=== PATIENT | female | born 1950 | race African-American/Black ===

== ENCOUNTER 2019-04-21 06:44 | Day surgery (SDC) | payer OTHER, BC ==
[2019-04-21] MEDS ORDERED: HEPARIN NA (PORCINE) 5,000 UNITS/ML 1ML VIAL ONE (07:32)
[2019-04-21] MEDS ORDERED: POVIDONE-IODINE OINTMENT 10% - 28.4 GM TUBE ONE (07:32)
[2019-04-21] MEDS ORDERED: LIDOCAINE HCL 1%, 10 MG/ML (20ML VIAL) ONE (07:32)
[2019-04-21 07:50] VITALS: BMI 45.5
[2019-04-21] MEDS ORDERED: MIDAZOLAM HCL 2 MG/2 ML SINGLE DOSE VIAL ONE ×2 (08:54→11:05)
[2019-04-21] MEDS ORDERED: PROPOFOL 20 ML ONE ×2 (08:54)
--- NOTE | 2019-04-21 08:55 | HP ---
Satellite [facility] - Chief Complaint History of Present Illness: 68 year old woman with ESRD on HD. Left arm fistula failed after multiple interventions. History Source: Medical Record Limitations to Obtaining History: No Limitations - Past Medical History Allergies/Adverse Reactions: Allergies Allergy/AdvReac Type Severity Reaction Status Date / Time wheat Allergy Intermediate Rash Verified 04/21/19 07:12 Iodinated Contrast- Oral and Allergy Mild Rash, ITCHY Verified 04/21/19 07:12 IV Dye latex Allergy Mild Rash,ITCHY Verified 04/21/19 07:12 oxycodone HCl [From Percocet] Allergy Mild Nausea Verified 04/21/19 07:12 Sulfa (Sulfonamide Allergy Mild Rash,ITCHY Verified 04/21/19 07:12 Antibiotics) steroids AdvReac Unknown Nausea Uncoded 04/21/19 07:12 CARDIOTHORACIC ANESTHESIA TECHNICIAN: Yes: CVA Cardiovascular: Yes: CAD, HTN, Hyperlipdemia Pulmonary: Yes: Asthma, Sleep Apnea Gastrointestinal: Yes: Constipation Renal/: Yes: Renal Inusuff (baseline creatinine 1.5-1.[address] Dat Fenton) Infectious Disease: Yes: Other (see HPI) Musculoskeletal: Yes: Chronic low back pain Endocrine: Yes: Diabetes Mellitus - Current Medications Current Medications: Home Medications Medication Instructions Recorded Insulin (Novolog) [Novolog Flexpen 0 units SQ TIDAC #0 pen 02/18/14 -] Insulin Glargine,Hum.rec.anlog 27 units SQ DAILY 12/28/14 [Lantus (10mL VIAL) -] Torsemide 20 mg PO DAILY 12/28/14 Albuterol 0.083% Nebulizer Kitty 1 neb NEB QID 07/06/16 [Ventolin 0.083%] Aspirin [Ecotrin] 81 mg PO DAILY 07/06/16 Atorvastatin Ca [Lipitor] 40 mg PO HS 07/06/16 Fluticasone/Salmeterol [Advair 1 each IH DAILY 07/06/16 250-50 Diskus] Amlodipine Besylate 10 mg PO DAILY 04/21/19 Doxazosin Mesylate 2 mg PO DAILY 04/21/19 Montelukast Na [Singulair -] 10 mg PO HS 04/21/19 Satellite Physical Exam - Physical Examination Vital Signs: Vital Signs Period Temp Pulse Resp BP Sys/Gallo Pulse Ox Last 24 Hr 98.2 F 50 16 158/66 96 General Appearance: Obese ENT: Clear Lung: Clear to auscultation Heart: Regular rate & rhythm Abdomen: Soft Extremities: No edema Neurological: Intact Satellite Impression/Plan - Impression/Plan Impression: ESRD on HD Operative Procedure: Placement AV graft left arm Date to be Performed: 04/21/19
[2019-04-21] MEDS ORDERED: KETAMINE HCL 200 MG/20 ML VIAL ONE (09:12)
[2019-04-21] MEDS ORDERED: ONDANSETRON 4 MG/2 ML VIAL IVPUSH PRN (09:15)
[2019-04-21] MEDS ORDERED: ceFAZolin SODIUM 1 GM VIAL IVPB ONE (09:18)
[2019-04-21] MEDS ORDERED: LIDOCAINE HCL 1%, 10 MG/ML (20ML VIAL) NR ONE ×2 (09:30)
[2019-04-21] MEDS ORDERED: THROMBIN (BOVINE) 5,000 UNIT VIAL TP ONE ×2 (10:21→10:26)
[2019-04-21] MEDS ORDERED: POVIDONE-IODINE OINTMENT 10% - 28.4 GM TUBE TP ONE (11:28)
--- NOTE | 2019-04-21 11:46 | OP ---
Operative Note - Note: Operative Date: 04/21/19 Pre-Operative Diagnosis: ESRD on HD Operation: Placement AV graft left arm Findings: Patent axillary artery and vein Implants: 4-7 mm PTFE graft Post-Operative Diagnosis: Same as Pre-op Surgeon: Akira Chatman Chiropractic Care: Jimbo Moseley Anesthesiologist/FOUNDER CEO & PRESIDENT: Crow Monae Anesthesia: Fractional Estimated Blood Loss (mls): 30
[2019-04-21] MEDS ORDERED: ACETAMINOPHEN WITH CODEINE 300MG/30MG TABLET PO PRN ×2 (11:47)
--- NOTE | 2019-04-21 11:51 | SURG ---
Surgery End Polisher Note End Polisher: Jimbo Moseley PA-C (Suzy) Date of Service: 04/21/19 Diagnosis: ESRD ON HD Procedure: Placement AV graft left arm I was present for the entirety of the operative procedure. For further detail, please refer to operative report. Visit type - Case Type Case Type: Scheduled - Emergency Emergency Visit: No - New patient This patient is new to me today: Yes Date on this admission: 04/21/19 - Critical Care Critical Care patient: No
[2019-04-21 12:52] VITALS: TEMP 97.7
[2019-04-21 13:44] VITALS: BP 140/57; PULSE 53
--- NOTE | 2019-04-23 13:04 | OP ---
DATE OF OPERATION: 04/21/2019 SURGEON: Akira Leslie MD SPEECH LANGUAGE PATHOLOGIST PRN: BASSAM Pedraza PROCEDURE: Placement of arteriovenous graft, left arm. PREOPERATIVE DIAGNOSIS: Renal failure. POSTOPERATIVE DIAGNOSIS: Renal failure. ANESTHESIA: Fractional. JET WIPER: JORGE LUIS Whalen-BODY DESIGNER OPERATIVE FINDINGS: The axillary artery and vein were patent. OPERATIVE PROCEDURE: Following routine patient identification with side and site verification intravenous sedation was established. The left arm was prepped with ChloraPrep. Timeout was performed. Lidocaine 1% was infiltrated in the axilla and a longitudinal incision made. The subcutaneous tissues were dissected. The axillary artery and vein were identified. Each was mobilized and secured with vessel loops. Side branches were ligated and divided. A counterincision was made in the distal portion of the arm and a curved metal tunneler was passed over the anterior aspect of the arm between the 2 incisions. A 4-7-mm PTFE Propaten graft was passed through the tunneler with care not to twist it. The tunneler was then passed again along the medial aspect of the arm between the 2 incisions and the graft passed through this to achieve a loop configuration. The axillary artery was then occluded with the vessel loops and a 6-mm arteriotomy made. The small end of the graft was anastomosed to the side of the artery with running suture of 6-0 Prolene. Prior to completion of the suture line the graft was occluded with a clamp and the artery was allowed to backbleed and flush. Suture line was completed and the artery was released. Bleeding from the suture line was controlled with Surgicel and FloSeal. The vein was then occluded with a small bulldog clamp proximally and vessel loop distally. A longitudinal venotomy measuring approximately 15 mm was made. The large end of the graft was beveled and anastomosed to the side of the vein with running suture of 6-0 Prolene. Prior to completion of the suture line the vein was allowed to backbleed and flush and the graft was flushed. The limb was filled with heparin solution. Suture line was completed and all vessels were released. There was good flow through the graft with a palpable pulse present. Hemostasis was adequate. The wounds were closed with interrupted suture of 3-0 Vicryl and skin susana. Sterile dressings were applied. The patient was taken to the recovery room in stable condition. AKIRA LESLIE M.D. EVELYN/[id number]
== END 2019-04-21 13:47 | disposition home or self-care (01) ==
LOC: JASU-SURG 06:44
PROVIDERS: ATTEND Surgery
PROC: 03160JD Bypass Left Axillary Artery to Upper Arm Vein with Synthetic Substitute, Open Approach (ICD-10-PCS; principal; 2019-04-21 09:00)
DX: I12.0 Hypertensive chronic kidney disease with stage 5 chronic kidney disease or end stage renal disease (principal); E11.22 Type 2 diabetes mellitus with diabetic chronic kidney disease; N18.6 End stage renal disease; Z99.2 Dependence on renal dialysis; Z79.4 Long term (current) use of insulin
CPT/HCPCS: 36415; 82947; 84132; 94760; J1644

== ENCOUNTER 2019-07-22 09:24 | Day surgery (SDC) | payer OTHER, BC ==
[2019-07-21 11:27] VITALS: BMI 45.5
[2019-07-22 10:19] VITALS: BP 139/70; PULSE 60; TEMP 98.3
[2019-07-22] MEDS ORDERED: ONDANSETRON 4 MG/2 ML VIAL IVPUSH PRN (11:30)
[2019-07-22] MEDS ORDERED: SODIUM CHLORIDE 1,000 ML IV SCH (11:30)
[2019-07-22] MEDS ORDERED: ROCURONIUM BROMIDE 50 MG/5 ML SYRINGE ONE (12:09)
[2019-07-22] MEDS ORDERED: PROPOFOL 20 ML ONE (12:09)
[2019-07-22] MEDS ORDERED: MIDAZOLAM HCL 2 MG/2 ML SINGLE DOSE VIAL ONE (12:09)
[2019-07-22] MEDS ORDERED: BUPIVACAINE HCL/PF 0.5% (5 MG/ML) 30 ML VIAL IJ ONE (12:29)
--- NOTE | 2019-07-22 12:45 | HP ---
Satellite [facility] - Chief Complaint History of Present Illness: 68 year old woman ESRD on HD wishes to transition to peritoneal dialysis History Source: Patient - Past Medical History Allergies/Adverse Reactions: Allergies Allergy/AdvReac Type Severity Reaction Status Date / Time wheat Allergy Intermediate Rash Verified 04/21/19 07:12 Iodinated Contrast Media Allergy Mild Rash, ITCHY Verified 04/21/19 07:12 latex Allergy Mild Rash,ITCHY Verified 04/21/19 07:12 oxycodone HCl [From Percocet] Allergy Mild Nausea Verified 04/21/19 07:12 Sulfa (Sulfonamide Allergy Mild Rash,ITCHY Verified 04/21/19 07:12 Antibiotics) SURGICAL ALEXUS Allergy Severe INFECTION Uncoded 07/21/19 11:27 steroids AdvReac Unknown Nausea Uncoded 04/21/19 07:12 SENIOR ONLINE MARKETING MANAGER: Yes: CVA Cardiovascular: Yes: CAD, HTN, Hyperlipdemia Pulmonary: Yes: Asthma, Sleep Apnea Gastrointestinal: Yes: Constipation Renal/: Yes: Renal Inusuff (baseline creatinine 1.5-1.[address] Dat Fenton) Infectious Disease: Yes: Other (see HPI) Musculoskeletal: Yes: Chronic low back pain Endocrine: Yes: Diabetes Mellitus - Current Medications Current Medications: Home Medications Medication Instructions Recorded Insulin (Novolog) [Novolog Flexpen 0 units SQ TIDAC #0 pen 02/18/14 -] Insulin Glargine,Hum.rec.anlog 27 units SQ DAILY 12/28/14 [Lantus (10mL VIAL) -] Torsemide 20 mg PO DAILY 12/28/14 Albuterol 0.083% Nebulizer Kitty 1 neb NEB QID 07/06/16 [Ventolin 0.083% Nebulizer Soln -] Aspirin [Ecotrin] 81 mg PO DAILY 07/06/16 Atorvastatin Ca [Lipitor] 40 mg PO HS 07/06/16 Fluticasone/Salmeterol [Advair 1 each IH DAILY 07/06/16 250-50 Diskus] Acetaminophen W/ Codeine #3 1 tab PO Q6H PRN #10 tablet MDD 4 04/21/19 [Tylenol # 3 -] Amlodipine Besylate 10 mg PO DAILY 04/21/19 Doxazosin Mesylate 2 mg PO DAILY 04/21/19 Montelukast Na [Singulair -] 10 mg PO HS 04/21/19 Satellite Physical Exam - Physical Examination Vital Signs: Vital Signs Period Temp Pulse Resp BP Sys/Gallo Pulse Ox Last 24 Hr 98.3 F 60 18 139/70 95-95 General Appearance: Obese ENT: Clear Lung: Clear to auscultation Heart: Regular rate & rhythm Abdomen: Soft Extremities: No edema Satellite Impression/Plan - Impression/Plan Impression: ESRD Operative Procedure: Laparoscopy, placement PD catheter Date to be Performed: 07/22/19
== END 2019-07-22 13:29 | disposition home or self-care (01) ==
LOC: JASU-SURG 09:24
PROVIDERS: ATTEND Surgery
DX: Z53.8 Procedure and treatment not carried out for other reasons (principal)
CPT/HCPCS: 36415; 82962; 84132; J1644

== ENCOUNTER 2019-07-27 06:23 | Day surgery (SDC) | payer OTHER, BC ==
[2019-07-24 09:47] VITALS: BMI 45.5
[2019-07-27] MEDS ORDERED: BUPIVACAINE HCL/PF 0.5% (5 MG/ML) 30 ML VIAL IJ ONE ×2 (07:32→08:43)
[2019-07-27 07:33] LABS: POTASSIUM 5.3 mmol/L (3.5-5.1)
[2019-07-27] MEDS ORDERED: ETOMIDATE 20 MG/10 ML AMPUL IVPUSH ONE (08:06)
[2019-07-27] MEDS ORDERED: PROPOFOL 20 ML ONE ×2 (08:06→08:09)
[2019-07-27] MEDS ORDERED: MIDAZOLAM HCL 2 MG/2 ML SINGLE DOSE VIAL ONE (08:07)
[2019-07-27] MEDS ORDERED: ROCURONIUM BROMIDE 50 MG/5 ML SYRINGE ONE (08:07)
[2019-07-27] MEDS ORDERED: ceFAZolin SODIUM 1 GM VIAL ONE (08:09)
[2019-07-27] MEDS ORDERED: LIDOCAINE HCL/PF 2% SDV 5ML VIAL ONE (08:09)
[2019-07-27] MEDS ORDERED: ceFAZolin SODIUM 1 GM VIAL IVPB ONE (08:38)
[2019-07-27] MEDS ORDERED: GLYCOPYRROLATE 0.2 MG/1 ML VIAL ONE (08:54)
[2019-07-27] MEDS ORDERED: NEOSTIGMINE METHYLSULFATE 0.5 MG/ML - 10 ML MDV ONE (08:54)
--- NOTE | 2019-07-27 09:59 | OP ---
Operative Note - Note: Operative Date: 07/27/19 Pre-Operative Diagnosis: ESRD Operation: Laparoscopy. Omentopexy. Placement peritoneal dialysis catheter with extension Findings: Excessive omentum Adhesions of sigmoid in left lower quadrant Implants: PD catheter Surgeon: Akira Chatman Dealership General Manager: Jimbo Moseley Anesthesiologist/GLASS INSPECTOR: Juhi Arellano Anesthesia: General
[2019-07-27] MEDS ORDERED: ONDANSETRON 4 MG/2 ML VIAL IVPUSH PRN (10:09)
[2019-07-27] MEDS ORDERED: IBUPROFEN 800 MG/8 ML IJ IVPB PRN (10:09)
[2019-07-27] MEDS ORDERED: ACETAMINOPHEN 1000 MG/100 ML VIAL (NON FORMULARY) IVPB PRN (10:11)
[2019-07-27] MEDS ORDERED: SODIUM CHLORIDE 1,000 ML IV SCH (10:15)
--- NOTE | 2019-07-27 10:36 | SURG ---
Surgery Hoisting Engineer Note Hoisting Engineer: Jimbo Moseley PA-C (Suzy) Date of Service: 07/27/19 Diagnosis: ESRD Procedure: Laparoscopy. Omentopexy. Placement peritoneal dialysis catheter with extension I was present for the entirety of the operative procedure. For further detail, please refer to operative report.
[2019-07-27] MEDS ORDERED: ACETAMINOPHEN INJECTION 100 ML IVPB ONE (10:41)
[2019-07-27 14:11] VITALS: BP 166/62; PULSE 60; TEMP 97.8
--- NOTE | 2019-07-31 10:15 | OP ---
DATE OF OPERATION: 07/27/2019 SURGEON: Akira Chatman MD TUCK POINTER: BASSAM Pedraza PROCEDURE: Laparoscopy with omentopexy, placement of peritoneal dialysis catheter with extension tubing. PREOPERATIVE DIAGNOSIS: End-stage renal disease. POSTOPERATIVE DIAGNOSIS: End-stage renal disease. ANESTHESIA: General. ANESTHESIOLOGIST: Juhi Arellano MD OPERATIVE FINDINGS: There was excessive omentum in the pelvis. There was adherence of the pericolic fat of the left lower quadrant to the abdominal wall. No other adhesions were seen. OPERATIVE PROCEDURE: Following routine patient identification, general anesthesia was induced. The abdomen was prepped with ChloraPrep. Time-out was performed. A 5-mm Optiview port was placed through a left upper quadrant incision under direct laparoscopic visualization into the peritoneal cavity. Pneumoperitoneum was established with carbon dioxide to 15 mmHg pressure. A 30-degree angled laparoscope was then used to explore the abdomen. A 2nd 5-mm port was placed in the right abdominal wall under direct vision. The omentum was elevated towards the right upper quadrant. A spinal needle was advanced through the skin in the right upper quadrant, and a 2-0 Prolene suture was passed through the needle and grasped. Incision was made around the suture and a suture passer advanced through the abdominal wall from this site through the omentum and the suture grasped and pulled back out through the abdominal wall and tied securely to affix the omentum in the right upper quadrant. An incision was then made above and to the right of the umbilicus and carried down to subcutaneous tissues with cautery until the muscle fascia was reached. An 8-mm blunt trocar was then advanced until the tip was seen tenting the peritoneum. It was then directed towards the pelvis and brought into the peritoneal cavity inferior to the umbilicus. A curled single cuff Tenckhoff catheter was then straightened with a wire and passed through the 8-mm port and the catheter deployed into the pelvis. The cuff was brought to the level of the fascia. The 8-mm port was removed. Another incision was made several centimeters above the catheter exit site and then the catheter passed through the subcutaneous tissues to this incision with a tunneler. A curved metal tunneler was then used to pass the upper abdomen extension tubing with an exit site in the left upper abdominal wall. The 2 tubings were then cut and a metal adapter used to connect them and tied in place with 2-0 silk. The catheters were then positioned in the subcutaneous tissues without kinking. The luer lock adapter was then attached to the end of the catheter with a transverse set, 1 L of saline was run into the peritoneal cavity with gravity drainage in approximately 4 minutes. The bag was dropped to the floor and approximately 300 mL drained within the 1st minute. Additional saline was allowed to drain until there was approximately 300 mL left in the peritoneal cavity. The catheter was filled with heparin solution and capped. All wounds were then closed with interrupted suture of 3-0 Vicryl in subcutaneous tissues and running suture of 4-0 Biosyn on the skin. Dermabond glue was applied as a dressing, and the catheter was fixed to the skin with a Tegaderm and ABD pad. The patient was then extubated and taken to the recovery room in stable condition. Vishal [id number]
== END 2019-07-27 13:50 | disposition home or self-care (01) ==
LOC: JASU-SURG 06:23
PROVIDERS: ATTEND Surgery
PROC: 0WHG43Z Insertion of Infusion Device into Peritoneal Cavity, Percutaneous Endoscopic Approach (ICD-10-PCS; principal; 2019-07-27 08:00)
DX: I12.0 Hypertensive chronic kidney disease with stage 5 chronic kidney disease or end stage renal disease (principal); E11.22 Type 2 diabetes mellitus with diabetic chronic kidney disease; N18.6 End stage renal disease; N17.9 Acute kidney failure, unspecified; Z99.2 Dependence on renal dialysis; Z79.4 Long term (current) use of insulin
CPT/HCPCS: 36415; 82947; 84132; 94760; J0131; J1644